=== PATIENT | female | born 1980 | race Asian ===

== ENCOUNTER 2021-01-06 10:42 | Emergency (ER) | payer SELFPAY ==
[~2021-01-06] VITALS: Ht 162.6 cm; Wt 94.9 kg
--- NOTE | 2021-01-06 11:20 | NUR ---
MD exam in progress.
[2021-01-06] MEDS ORDERED: ONDANSETRON ODT 4 MG ONE (11:24)
[2021-01-06] MEDS ORDERED: DICYCLOMINE 20 MG TABLET ONE (11:24)
--- NOTE | 2021-01-06 11:26 | NUR ---
Pt medicated as ordered. legal associate completed. technical support technician at bedside.
[2021-01-06] MEDS ORDERED: DICYCLOMINE 20 MG TABLET PO ONE (11:30)
[2021-01-06] MEDS ORDERED: ONDANSETRON ODT 4 MG PO ONE (11:30)
--- NOTE | 2021-01-06 11:40 | NUR ---
Pt staright cathed for UA sample with sterile technique due to vaginal bleeding. Pt tolerated well and fresh pad provided for pt.
[2021-01-06 11:51] LABS: BASOPHILS % (AUTO) 1 % (0-1); EOSINOPHILS % (AUTO) 4 % (1-7); LYMPHOCYTES % (AUTO) 28 % (22-44); MEAN CORPUSCULAR HEMOGLOBIN 29.8 pg (27.0-34.8); MEAN CORPUSCULAR HGB CONC 34.1 g/dL (32.4-35.8); MEAN PLATELET VOLUME 9.1 fL (7.4-10.4); MONOCYTES % (AUTO) 9 % (2-9); NEUTROPHILS % (AUTO) 59 % (42-75); PLATELET COUNT 216 x10^3/uL (130-400); RED BLOOD COUNT 4.27 x10^6/uL (3.82-5.3); RED CELL DISTRIBUTION WIDTH 13.4 % (9.6-15.2)
[2021-01-06 11:55] LABS: MICROSCOPIC AUTO
[2021-01-06 12:05] LABS: ALBUMIN 3.3 g/dL (3.4-5.0); ANION GAP 8 mmol/L (5-15); CALCIUM 8.8 mg/dL (8.5-10.1); CHLORIDE 111 mmol/L (98-107)
--- NOTE | 2021-01-06 12:10 | NUR ---
Pt out of dept for [place] exam.
[2021-01-06 12:13] LABS: ALANINE AMINOTRANSFERASE 33 U/L (12-78); ALKALINE PHOSPHATASE 90 U/L (45-117); BILIRUBIN,TOTAL 0.3 mg/dL (0.2-1.0); CREATININE 0.54 mg/dL (0.55-1.02); TOTAL PROTEIN 7.4 g/dL (6.4-8.2)
--- NOTE | 2021-01-06 12:35 | NUR ---
Pt back from [place], awaiting MD recheck. Nausea resolved after medical imaging tech.
[2021-01-06 13:25] VITALS: BP 122/65
== END 2021-01-06 13:28 | disposition home or self-care (01) ==
LOC: ED 13:22
DX: R10.30 Lower abdominal pain, unspecified (principal); N94.4 Primary dysmenorrhea
CPT/HCPCS: 36415; 76830; 80053; 81001; 84703; 85025; 99284; Q0162